=== PATIENT | female | born 1970 | race Caucasian/White ===

== ENCOUNTER 2017-04-11 07:30 | Emergency (ER) | payer OTHER ==
[2017-04-11 07:42] VITALS: BP 129/61
--- NOTE | 2017-04-11 08:44 | UC ---
Lower Extremity/Ankle HPI - HPI Summary HPI Summary: running after her grandchild on 04/07, and trod full force on an embedded rock in the grass. Since then, has had increasing pain as she has been performing her usual duties while not fully heel striking. 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 Avoids nsaid's and tylenol due to hx of a fib and alcoholoism. - History of Current Complaint Chief Complaint: UCLowerExtremity Stated Complaint: RIGHT FOOT INJURY Time Seen by Provider: 04/11/17 08:26 Hx Obtained From: Patient Hx Last Menstrual Period: n/a Onset/Duration: Sudden Onset, Lasting Days - 5 Severity Initially: Moderate Severity Currently: Moderate Pain Intensity: 8 Pain Scale Used: 0-10 Numeric Aggravating Factor(s): Standing, Ambulation Alleviating Factor(s): Rest, Elevation Able to Bear Weight: Yes - Risk Factors Gout Risk Factors: Negative DVT Risk Factors: Negative Septic Arthritis Risk Factor: Negative - Allergies/Home Medications Allergies/Adverse Reactions: Allergies Allergy/AdvReac Type Severity Reaction Status Date / Time No Known Allergies Allergy Verified 04/11/17 07:34 Home Medications: Home Medications Digoxin [Digitek] 0.125 mg PO DAILY 04/11/17 [History Confirmed 04/11/17] Magnesium Oxide TAB* [MagOx 400 TAB*] 400 mg PO BID 04/11/17 [History Confirmed 04/11/17] Metoprolol Succinate XL TAB* [Toprol XL TAB*] 25 mg PO DAILY 04/11/17 [History Confirmed 04/11/17] Spironolactone TAB* [Aldactone TAB*] 3 tab PO DAILY 04/11/17 [History Confirmed 04/11/17] PMH/Surg Hx/FS Hx/Imm Hx Cardiovascular History: Atrial Fibrillation Psychological History: Other - alcoholism, in recovery Other Psychological History: alcoholic in recovery - Surgical History Surgical History: Yes Surgery Procedure, Year, and Place: - Family History Known Family History: Positive: Cardiac Disease, Hypertension - Social History Occupation: Employed Full-time Alcohol Use: None Substance Use Type: None Smoking Status (MU): Never Smoked Tobacco - Immunization History Most Recent Tetanus Shot: UNknown Review of Systems Constitutional: Negative Skin: Negative Eyes: Negative ENT: Negative Respiratory: Negative Cardiovascular: Other - now in sinus rhythm, maintains meds. Gastrointestinal: Negative Genitourinary: Negative Motor: Negative Neurovascular: Negative Musculoskeletal: Negative Neurological: Negative Psychological: Other - sober x 11 months All Other Systems Reviewed And Are Negative: Yes Physical Exam Triage Information Reviewed: Yes Appearance: Well-Appearing, Pain Distress - mild to moderate with movement Vital Signs: Initial Vital Signs Temp 98.7 F 04/11/17 07:36 Pulse 87 04/11/17 07:36 Resp 16 04/11/17 07:36 BP 129/61 04/11/17 07:36 Pulse Ox 100 04/11/17 07:36 ENT Exam: Normal Respiratory: Positive: Lungs clear Cardiovascular: Positive: RRR, Murmur:Sys:Grade _?_/ - 2 Musculoskeletal Exam: Other - mild swelling of the heel pad of the right foot, with tenderness with palpation Achilles intact, no calf pain with squeezing, negative Jeffry's. No swelling in forefoot, ankle or leg. Neurological Exam: Normal Skin Exam: Normal Lower Extremity Course/Dx - Course Course Of Treatment: ice alternating with foot soaks, rest, acetaminophen prn - Differential Dx/Diagnosis Differential Diagnosis/HQI/PQRI: Cellulitis, Sprain, Strain, Other - contusion Provider Diagnoses: contusion right heel pad Discharge - Discharge Plan Condition: Stable Disposition: HOME Patient Education Materials: Foot Contusion (ED) Forms: *Work Release Additional Instructions: Alternately use ice to the right heel, and soak in Epsom salts. Ice for 10 to 15 minutes, same with soaking. Ensure that you use a heel cup in your shoes. Follow up with your primary care doctor on Saturday for reassessment if you are not able to return to work.
== END 2017-04-11 08:53 | disposition home or self-care (01) ==
LOC: UCCORT 07:30
DX: S90.31XA Contusion of right foot, initial encounter (principal); W22.8XXA Striking against or struck by other objects, initial encounter; Y93.02 Activity, running; Y92.9 Unspecified place or not applicable; I48.91 Unspecified atrial fibrillation
CPT/HCPCS: 99211; G0463